=== PATIENT | female | born 1995 | race Two or more races ===

== ENCOUNTER 2018-05-27 02:35 | Observation (INO) | payer SELFPAY ==
[~2018-05-27] VITALS: Ht 157.5 cm; Wt 68.0 kg
[2018-05-27] MEDS ORDERED: LACT. RINGERS/OXYTOCIN 20UNITS 1,000 ML IV SCH (02:48)
[2018-05-27] MEDS ORDERED: LACTATED RINGER'S 1,000 ML IV SCH (02:48)
[2018-05-27] MEDS ORDERED: LIDOCAINE 2% (LOCAL ANESTH.) PF 5ml SDV ID ONE (03:00)
[2018-05-27] MEDS ORDERED: METHYLERGONOVINE MALEATE 0.2 MG/ML AMP IM PRN (03:00)
[2018-05-27] MEDS ORDERED: PENICILLIN G POT 5MIL/D5 50ML 50 ML IV ONE (03:00)
[2018-05-27] MEDS ORDERED: WITCH HAZEL-GLYCERIN PAD TOP PRN (03:00)
[2018-05-27] MEDS ORDERED: PHISODERM TOP SOLN 240ML BTL TOP PRN (03:00)
[2018-05-27] MEDS ORDERED: NALBUPHINE HCL 10 MG/1ml INJECTION IV PRN (03:00)
[2018-05-27] MEDS ORDERED: DERMOPLAST 60ML BOTTLE TOP PRN (03:00)
[2018-05-27 03:31] LABS: Basophils # (auto) 0.1 uL; Eosinophils # (auto) 0.1 uL; Eosinophils % (auto) 0.7 % (0.0-7.0); Monocytes # (auto) 0.8 uL; Monocytes % (auto) 8.2 % (0.0-12.0); Nucleated Red Blood Cells % 0.1 %
[2018-05-27 03:33] LABS: Basophils % (auto) 0.5 % (0.0-2.0); Hematocrit 32.4 % (36.0-46.0); Hemoglobin 10.1 g/dL (12.2-16.2); Lymphocytes # (auto) 1.9 uL; Lymphocytes % (auto) 18.8 % (10.0-50.0); Mean Corpuscular Hemoglobin 22.9 pg (28.0-32.0); Mean Corpuscular Hgb Conc. 31.1 g/dL (32.0-36.0); Mean Corpuscular Volume 73.6 fL (80.0-100.0); Neutrophils # (auto) 7.1 uL; Neutrophils % (auto) 71.8 % (37.0-80.0); Platelet Count (auto) 267 10^3/uL (140-450); Red Blood Cells 4.41 10^6/uL (4.0-5.20); White Blood Cell 9.9 10^3/uL (4.4-10.8)
[2018-05-27] MEDS ORDERED: LIDOCAINE 2%HCL (LOCAL ANESTH.) INJ 20ML MDV ONE (03:44)
[2018-05-27 03:48] LABS: INR 0.87 (0.9-1.15); Partial Thromboplastin Time 24.5 sec (23.78-33.04); Prothrombin Time 9.4 sec (9.27-12.13)
[2018-05-27 03:49] LABS: Albumin 2.7 g/dL (3.4-5.0); Calcium 8.4 mg/dL (8.5-10.1); Potassium 3.2 mmol/L (3.5-5.1)
[2018-05-27 03:52] LABS: BUN/Creatinine Ratio 11.9; Bilirubin, Total 0.5 mg/dL (0.2-1.0); Total Protein 7.1 g/dL (6.4-8.2)
[2018-05-27 04:01] LABS: Urine Bacteria FEW /hpf (None Seen); Urine Blood Negative /uL (Negative); Urine Mucus FEW (None Seen); Urine Specific Gravity 1.014 (1.001-1.035); Urine WBC <1 /hpf (0 - 5)
[2018-05-27 04:08] LABS: Alcohol, Urine < 3.0 mg/dL (0-5); Amphetamine Screen, Urine NEGATIVE (NEGATIVE); Barbiturate Scree,Urine NEGATIVE (NEGATIVE); Benzodiazephine Screen, Urine NEGATIVE (NEGATIVE); Cannabinoid Screen, Urine NEGATIVE (NEGATIVE); Cocaine Screen, Urine NEGATIVE (NEGATIVE); Opiate Scree,Urine NEGATIVE (NEGATIVE); Phencyclidine Screen, Urine NEGATIVE (NEGATIVE)
[2018-05-27] MEDS ORDERED: LACT. RINGERS/OXYTOCIN 20UNITS 500 ML IV ONE (04:45)
[2018-05-27 06:32] VITALS: BP 112/61
[2018-05-27] MEDS ORDERED: PENICILLIN G POTASSIUM 2,500,000 UNITS in D5W 5% 50 ML IV SCH (07:00)
[2018-05-27] MEDS: IBUPROFEN 600 MG TAB PO PRN ×3 (07:04→23:31)
[2018-05-27] MEDS ORDERED: PREN-96 PO (07:16)
[2018-05-27] MEDS ORDERED: FERR-7 PO (07:16)
[2018-05-27 08:13] VITALS: BP 104/55
[2018-05-27 10:45] VITALS: BP 103/62
[2018-05-27] MEDS ORDERED: POTASSIUM CHL 20 Meq TABLET PO ONE (14:30)
[2018-05-27 15:00] VITALS: BP 103/66
[2018-05-27 19:00] VITALS: BP 103/61
[2018-05-27 23:00] VITALS: BP 111/66
[2018-05-28 03:00] VITALS: BP 107/66
[2018-05-28 07:21] VITALS: BP 99/62
[2018-05-29 05:06] LABS: RPR Non Reactive (Non Reactive)
[2018-05-29 08:06] LABS: Rubella Antibodies, IgG 8.76 index (Immune >0.99)
== END 2018-05-28 11:45 | disposition home or self-care (01) | DRG 998 ==
LOC: EDBD 02:35 → LDRP 02:35
PROVIDERS: ADMIT Specialist; ATTEND Specialist
DX: O80 Encounter for full-term uncomplicated delivery (principal); Z3A.39 39 weeks gestation of pregnancy
CPT/HCPCS: 36415; 76805; 80053; 80307; 81001; 85025; 85610; 85730; 86592; 86703; 86762; 86850; 86900; 86901; 87340; 96365; G0378; J2540; 59409; 96361; J2590; J7060